=== PATIENT | male | born 1995 | race Caucasian/White ===

== ENCOUNTER 2024-01-10 17:23 | Emergency (ER) | payer BC, SELFPAY ==
[2024-01-10 17:29] VITALS: BP 122/78
--- NOTE | 2024-01-10 18:00 | ED.GENMED ---
History of Present Illness
General
Chief Complaint: Skin Surface Trauma
Time Seen by Provider: 01/10/24 17:47
History of Present Illness
History of Present Illness:
20-year-old male presents to the emergency department for evaluation of a laceration to the right thumb sustained while cutting vegetables. Last tetanus is unknown
Past History
Past History
ED Past Medical History: None
ED Past Surgical History: None
Social History
Tobacco: Non-smoker
Review of Systems
Review of Systems
Allergies reviewed?: Yes
All Other Systems: ROS reviewed and negative except as documented in HPI and ROS
Phy Exam
Physical Exam
Physical Exam:
GEN: Well appearing, NAD, WDWN
HEENT: Oral mucosa moist, no scleral icterus
Cardiac: Regular rate
Lung: No respiratory distress, no tachypnea
MSK: No gross deformity or injuries
Skin: Good color, no pallor or jaundice, no rashes. 1 cm avulsion/partial amputation of the right thumb, distal finger pad ulnar aspect
Neuro: AO x3, moves all extremities freely
Psych: Calm, cooperative
Course
Orders/Labs/Results
Orders:
Orders
01/10/24 18:03
Tetanus/Diphth/Acelpertussis [Adacel] 0.5 ml IM .ONCE ONE
Vital Signs
Initial and Last Documented VS:
Initial Vital Signs
Temp Pulse Resp BP Pulse Ox
98.4 F 77 18 122/78 99
01/10/24 17:29 01/10/24 17:29 01/10/24 17:29 01/10/24 17:29 01/10/24 17:29
Last Documented Vital Signs
Temp Pulse Resp BP Pulse Ox
98.4 F 77 18 122/78 99
01/10/24 17:29 01/10/24 17:29 01/10/24 17:29 01/10/24 17:29 01/10/24 17:29
MDM/Problems Addressed
MDM/Problems Addressed:
Hemostasis was achieved with lidocaine/epi and tourniquet. Glue applied vigorously for permanent hemostasis
*Critical Care Note
Total Time (30-74mins, 75-104mins- exclusive of procedures): Not Applicable
ED Attending Note
-
Portions of this chart may have been created with voice recognition software.� Occasional wrong word or��sound alike� substitutions may have occurred due to the inherent limitations of voice recognition software.
Discharge Plan
Departure
Patient Disposition: Home (Routine Discharge)
Date of Disposition: 01/10/24
Time of Disposition: 18:05
Patient with high blood pressure during this ER visit?: No
Discharge Problem:
Laceration of right thumb
Instructions: Laceration Repair With Glue (DC)
Prescriptions:
No Action
hydrocodone-acetaminophen 1 TABLET tablet
1 tab PO Q4HPRN PRN (Reason: Moderate to severe pain) Qty: 12 0RF
ibuprofen 600 MG tablet
600 mg PO Q6 Qty: 20 0RF
Activity Restrictions/Additional Instructions:
Glue will slowly dissolve over the next 7 to 10 days. You may wash the wound starting tomorrow. Keep covered at work
Interventions
Interventions:
*Risk Screen - Suicide Last Done: 01/10/24 17:31
*General Assessment Last Done: 01/10/24 17:31
*Neglect/Abuse Screening Last Done: 01/10/24 17:31
Discharge Date and Time
Print Language: SINHALA
[2024-01-10] MEDS: ADACEL 0.5 ML IM (18:18)
[2024-01-10 18:33] VITALS: BP 122/76
== END 2024-01-10 18:34 | disposition home or self-care (01) ==
LOC: EMR 17:23
PROVIDERS: EMERGENCY PHYSICIAN Emergency Medicine; FAMILY PHYSICIAN Family Medicine
DX: S61.011A Laceration without foreign body of right thumb without damage to nail, initial encounter (principal); W27.8XXA Contact with other nonpowered hand tool, initial encounter; Y93.G1 Activity, food preparation and clean up; Z23 Encounter for immunization
CPT/HCPCS: 90471; 99283; 12001; 90715